=== PATIENT | male | born 1985 | race Hispanic/Latino ===

== ENCOUNTER 2018-03-29 10:34 | Emergency (ER) | payer BC ==
[2018-03-29 10:39] VITALS: BMI 31.3
[2018-03-29 10:40] VITALS: TEMP 98.4
[2018-03-29] MEDS ORDERED: Tdap Vaccine 0.5 ml Vial (10-64 yrs) IM ONE ×2 (11:07→11:17)
[2018-03-29] MEDS ORDERED: Lidocaine 2% Inj (20ml) INFIL ONE (11:07)
[2018-03-29] MEDS ORDERED: Bacitracin 500 Units/gm Oint Foilpak UD TOP ONE (11:07)
--- NOTE | 2018-03-29 11:11 | C.PDOC ---
History Of Present Illness 32 year old male presents to the ER complaining of laceration to the left thumb. Patient states he sustained the laceration while putting away a machete in the sheath. Patient denies any other injuries/trauma, pain, weakness, numbness, tingling. Tetanus vaccination status unknown. RIght hand dominant. Time Seen by Provider: 03/29/18 10:47 Chief Complaint (Nursing): Abnormal Skin Integrity History Per: Patient History/Exam Limitations: no limitations Onset/Duration Of Symptoms: Hrs Current Symptoms Are (Timing): Still Present Location Of Injury: Left: Hand (laceration to left thumb ) Past Medical History Reviewed: Historical Data, Nursing Documentation, Vital Signs Vital Signs: Last Vital Signs Temp 98.4 F 03/29/18 10:39 Pulse 89 03/29/18 10:39 Resp 18 03/29/18 10:39 BP 150/91 H 03/29/18 10:39 Pulse Ox 96 03/29/18 11:39 - Medical History PMH: HTN (in denial) Surgical History: No Surg Hx Family History: States: No Known Family Hx - Social History Hx Alcohol Use: No Hx Substance Use: No - Immunization History Hx Tetanus Toxoid Vaccination: No Hx Influenza Vaccination: No Hx Pneumococcal Vaccination: No Review Of Systems Except As Marked, All Systems Reviewed And Found Negative. Skin: Positive for: Other (Laceration to left thumb ) Neurological: Negative for: Weakness, Numbness Physical Exam - Physical Exam Appears: Non-toxic, No Acute Distress Skin: Warm, Dry Head: Atraumatic, Normacephalic Eye(s): bilateral: Normal Inspection, EOMI Nose: Normal Oral Mucosa: Moist Neck: Normal ROM, Supple Chest: Symmetrical Respiratory: No Accessory Muscle Use Extremity: Normal ROM, No Tenderness, Capillary Refill (<2 sec), Other (1cm laceration to proximal phalanx of 1st digit of left hand of palmar aspect ) Pulses: Left Radial: Normal, Right Radial: Normal Neurological/Psych: Oriented x3, Normal Speech, Normal Motor (5/5 against resistance), Normal Sensation ED Course And Treatment O2 Sat by Pulse Oximetry: 96 (RA) Pulse Ox Interpretation: Normal Progress Note: Patient assessed and examined. Tetanus vaccination administered by RN. Laceration repair performed. Patient tolerated procedure well. Patient instructed to follow up in 2 days for wound check. Discussed concern for untreated HTN. Laceration - Laceration Repair proximal phalanx of 1st digit of left hand Wound Length (In cm): 1cm Description Of Wound: Linear Wound Cleansed With: Betadine, Sterile Saline Anesthesia: Lidocaine 2% Wound Examination: Irrigated With Saline, No FB With Wound Exploration, No Tendon Injury With Wound Exploration Wound Closure: Suture (2) Suture Technique And Material Used: Interrupted, Nylon Wound Complexity: Simple Disposition - Disposition Disposition: HOME/ ROUTINE Disposition Time: 11:27 Condition: STABLE Additional Instructions: Wound check in 2 days. Suture removal in 7-10 days. Keep area clean and dry , watch for signs of infection including redness, swelling or discharge. You blood pressure was elevated today. Recheck you blood pressure in 2 days. Uncontrolled blood pressure puts you are risk many health concerns including but not limited to stroke, heart attack, kidney failure and aneurysm. 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 - Scribe Statement The provider has reviewed the documentation as recorded by the Scribe Nika Ny All medical record entries made by the Scribdagoberto were at my direction and personally dictated by me. I have reviewed the chart and agree that the record accurately reflects my personal performance of the history, physical exam, medical decision making, and the department course for this patient. I have also personally directed, reviewed, and agree with the discharge instructions and disposition.
[2018-03-29] MEDS ORDERED: Bacitracin 500 Units/gm Oint Foilpak UD ONE (11:17)
[2018-03-29] MEDS ORDERED: Lidocaine 2% MPF (5 ml) Inj ONE (11:17)
[2018-03-29 11:41] VITALS: BP 135/95; PULSE 70; RESP 16
[2018-03-29 11:43] VITALS: O2SAT 96
== END 2018-03-29 11:41 | disposition home or self-care (01) ==
LOC: C.ER 10:34
DX: S61.012A Laceration without foreign body of left thumb without damage to nail, initial encounter (principal); W26.1XXA Contact with sword or dagger, initial encounter; Z23 Encounter for immunization